=== PATIENT | female | born 1995 | race Caucasian/White ===

== ENCOUNTER 2023-01-16 08:54 | Emergency (ER) | payer SELFPAY ==
[~2023-01-16] VITALS: Ht 167.6 cm; Wt 84.4 kg
[2023-01-16] MEDS ORDERED: CLINDAMYCIN IV ONE (09:15)
[2023-01-16] MEDS ORDERED: CLINDAMYCIN 900 MG in DEXTROSE 5% WATER 50 ML IV ONE (09:15)
[2023-01-16 09:28] LABS: BASOPHILS % 0.2 % (0.0-2.0); DIFFERENTIAL COMMENT 0; EOSINOPHILS % 0.2 % (0.0-5.0); HEMATOCRIT. 27.2 % (36.0-48.0); HEMOGLOBIN. 8.8 g/dL (12.0-16.0); LYMPHOCYTES % 17.4 % (20.0-50.0); MEAN CORPUSCULAR HEMOGLOBIN 24.3 pg (28.0-32.0); MEAN CORPUSCULAR HGB CONC 32.4 g/dL (31.0-37.0); MEAN PLATELET VOLUME 7.6 fl (7.4-10.4); MONOCYTES % 6.2 % (2.0-8.0); PLATELET 228 x1000/uL (130-400); RED BLOOD CELL COUNT 3.62 mill/uL (4.2-5.4); RED CELL DISTRIBUTION WIDTH 16.5 % (11.6-14.6); WHITE BLOOD COUNT 9.3 x1000/uL (4.5-11.0)
[2023-01-16] MEDS ORDERED: CLINDAMYCIN IV SCH ×2 (09:30)
[2023-01-16] MEDS ORDERED: LACTATED RINGERS 1,000 ML IV SCH (09:30)
[2023-01-16 09:32] VITALS: O2SAT 98
[2023-01-16 09:51] LABS: ALANINE AMINOTRANSFERASE 8 IU/L (10-49); ASPARTATE AMINOTRANSFERASE 18 IU/L (<34); BILIRUBIN TOTAL 0.4 mg/dL (0.1-1.0); CALCIUM 9.2 mg/dL (8.7-10.4); CARBON DIOXIDE 25 mEq/L (21-32); CHLORIDE 101 mEq/L (98-107); CREATININE 0.4 mg/dL (0.6-1.0); GLUCOSE 87 mg/dL (70-105); POTASSIUM 3.8 mEq/L (3.5-5.1); PROTEIN TOTAL 6.4 g/dL (6.0-8.3); SODIUM 135 mEq/L (136-145)
[2023-01-16 09:55] LABS: UREA NITROGEN BLOOD < 5 mg/dL (9-23)
[2023-01-16 10:13] LABS: HEPATITIS B SURFACE ANTIGEN NEGATIVE (Negative); RUBELLA IGG 28 IU/ML (>10)
[2023-01-16 11:09] VITALS: BP 120/64; PULSE 100; RESP 18
== END 2023-01-16 11:14 | disposition short-term general hospital (02) ==
LOC: ER 09:36
DX: O41.03X0 Oligohydramnios, third trimester, not applicable or unspecified (principal); Z3A.38 38 weeks gestation of pregnancy; Z20.822 Contact with and (suspected) exposure to COVID-19
CPT/HCPCS: 99285; 96365; 76805; 96366; 87426; 86592; 80053; 85025; 86850; 86900; 86901; 87340; 36415; 86762; J3490; C9803; J7060